=== PATIENT | female | born 1990 ===

== ENCOUNTER 2017-06-07 12:05 | Emergency (ER) | payer OTHER ==
[2017-06-07 12:12] VITALS: TEMP 98.4
--- NOTE | 2017-06-07 12:17 | EDPHY ---
H & P Time Seen by Provider: 06/07/17 12:11 HPI/ROS: CHIEF COMPLAINT: Needlestick injury HISTORY OF PRESENT ILLNESS: 26-year-old ipdtl-njmo-rjsiacac female works in the [employer] states that 2 days ago she was mixing normal saline and accidentally impacted her left volar wrist ulnar aspect with a needle that had not been in contact with body substances, had only been in contact with sterile normal saline. She is complaining of pain to her left ulnar wrist reproducible with palpation range of motion as well as ecchymosis to the area. No paresthesia. No erythema. PHYSICAL EXAM (Prior to examination, patient consented to physical exam, hands were washed and my usual and customary physical exam procedures followed) 1) GENERAL: Well-developed, well-nourished, alert and oriented. Appears to be in no acute distress. 2) HEAD: Normocephalic 3) HEENT: Pupils equal, round, reactive to light bilaterally. 4) LUNGS: Breathing comfortably. 5) MUSCULOSKELETAL: Soft compartments. Normal coloration. 6) SKIN: Ecchymosis noted to the left volar wrist ulnar aspect with localized tenderness. No erythema. No signs of infection or cellulitis. 7) VASCULAR: pulses and cap refill present are brisk. Positive Sher test 8) NEUROLOGIC: Radial, ulnar, median nerve function intact with no deficits appreciated on exam DIFFERENTIAL DIAGNOSIS: in no particular order including but not limited to fracture, sprain, compartment syndrome Procedure: Splint A Velcro volar splint was applied by ER setup technician. After application of the splint I returned and re-examined the patient. The splint was adequately immobilizing the joint and distal to the splint the patient's circulation and sensation were intact. Patient shows no signs of compartment syndrome. Was given orthopedic precautions. Smoking Status: Never smoked Constitutional: Initial Vital Signs Temperature (C) 36.9 C 06/07/17 12:11 Heart Rate 84 06/07/17 12:11 Respiratory Rate 18 06/07/17 12:11 Blood Pressure 126/96 H 06/07/17 12:11 O2 Sat (%) 96 06/07/17 12:11 O2 Delivery Mode Room Air Allergies/Adverse Reactions: azithromycin [From Zithromax Z-Yo] Allergy (Verified 06/07/17 12:11) MDM/Departure - MDM Procedures: Procedure: Splint A Velcro volar splint was applied by ER setup technician. After application of the splint I returned and re-examined the patient. The splint was adequately immobilizing the joint and distal to the splint the patient's circulation and sensation were intact. Patient shows no signs of compartment syndrome. Was given orthopedic precautions. ED Course/Re-evaluation: Doubt vascular injury. Doubt fracture. Doubt infection. Doubt deep space infection such as abscess. Plan will be splinting, recommend elevation, follow up with employee health in 2-3 days. Care of patient under supervision of secondary supervising physician Dr Prince. - Depart Disposition: Home, Routine, Self-Care Clinical Impression: Needlestick injury due to hypodermic needle Condition: Good Instructions: Needle Stick Injuries (ED) Additional Instructions: Return to the ER if you develop redness, swelling, discharge, warmth to the wound, red streaks going up your arm or any other symptoms that concern you. Referrals: [facility],. [Clinic] - 1-2 days without fail
[2017-06-07 12:36] VITALS: BP 126/88; PULSE 82; RESP 16; O2SAT 97
== END 2017-06-07 12:57 | disposition home or self-care (01) ==
DX: S61.532A Puncture wound without foreign body of left wrist, initial encounter (principal); W46.1XXA Contact with contaminated hypodermic needle, initial encounter; Y92.238 Other place in hospital as the place of occurrence of the external cause; Y99.0 Civilian activity done for income or pay; Y93.89 Activity, other specified
CPT/HCPCS: L3908